=== PATIENT | male | born 1990 | race African-American/Black ===

== ENCOUNTER 2018-05-19 17:08 | Emergency (ER) | payer OTHER ==
[~2018-05-19] VITALS: Ht 193 cm; Wt 111.4 kg
[2018-05-19 18:07] LABS: HEMATOCRIT 43.2 % (38.0-50.0); HEMOGLOBIN 15.8 G/DL (12.5-16.6); MCH 29.9 PG (29.0-34.0); MCHC 36.6 G/DL (30.0-36.0); MCV 81.7 FL (86-99); PLATELET COUNT 281 K/uL (156-360); RBC DIS.WIDTH-CV 12.1 % (11.8-14.6); RBC DIS.WIDTH-SD 35.8 % (39-53); RED BLOOD COUNT 5.29 M/uL (4.00-5.50); WHITE BLOOD COUNT 13.6 K/uL (4.1-10.2)
[2018-05-19 18:08] LABS: CARBON DIOXIDE (BICARBONATE) 28.9 MEQ/L (20-31)
[2018-05-19 18:12] LABS: APPEARANCE CLEAR ((CLEAR)); BILIRUBIN NEGATIVE; BLOOD MODERATE; COLOR STRAW ((YELLOW)); GLUCOSE (STRIP) >=500; KETONES 20; LEUKOCYTES NEGATIVE; NITRITE NEGATIVE; PROTEIN (STRIP) 30; SPECIFIC GRAVITY 1.028 (1.000-1.030); UROBILINOGEN 0.2 MG/DL (0.2-1.0)
[2018-05-19 18:17] LABS: CHLORIDE 90 mEq/L (99-109); POTASSIUM 4.7 mEq/L (3.7-5.4)
[2018-05-19 18:19] LABS: BACTERIA RARE /HPF; EPITHELIAL CELLS RARE /HPF; MUCUS TRACE /LPF; RED BLOOD CELLS 0-5 /HPF (0-5); UCUL ADDED? NO; WHITE BLOOD CELLS 0-5 /HPF (0-5)
[2018-05-19 18:22] LABS: GFR ESTIMATE (CALCULATED) 53 mL/min/ (58.99-99999)
[2018-05-19 18:23] LABS: UREA NITROGEN (BUN) 30 mg/dL (9-23)
[2018-05-19 18:26] LABS: GLUCOSE 780 mg/dL (70-99); SODIUM 135 mEq/L (136-147)
[2018-05-19 21:45] VITALS: BP 135/76
== END 2018-05-19 21:46 | disposition short-term general hospital (02) ==
LOC: EME 17:08
PROVIDERS: Emergency Medicine
DX: E11.00 Type 2 diabetes mellitus with hyperosmolarity without nonketotic hyperglycemic-hyperosmolar coma (NKHHC) (principal)
CPT/HCPCS: 80048; 81003; 82010; 82803; 82948; 85027; 99281; 99285; J7030